=== PATIENT | male | born 1960 | race American Indian/Alaskan Native ===

== ENCOUNTER 2020-05-23 21:34 | Emergency (ER) | payer SELFPAY ==
[2020-05-23 23:46] LABS: Basophils # (Auto) 0.1 K/mm3 (0.0-0.1); Basophils % (Auto) 0.5 % (0.0-1.8); Eosinophils # (Auto) 0.2 K/mm3 (0.0-0.4); Eosinophils % (Auto) 1.5 % (0.0-4.3); Hematocrit 44.8 % (35.5-45.6); Hemoglobin 15.1 gm/dl (11.8-15.2); Lymphocytes # (Auto) 2.8 K/mm3 (1.2-5.4); Lymphocytes % (Auto) 25.8 % (13.4-35.0); Mean Corpuscular HGB Conc 34 % (32-34); Mean Corpuscular Volume 94 fl (84-94); Monocytes # (Auto) 1.1 K/mm3 (0.0-0.8); Monocytes % (Auto) 10.4 % (0.0-7.3); Platelet Count 207 K/mm3 (140-440); Red Blood Count 4.76 M/mm3 (3.65-5.03); Red Cell Distribution Width 14.6 % (13.2-15.2)
[2020-05-23 23:58] LABS: Alanine Aminotransferase 47 units/L (7-56); Albumin 4.7 g/dL (3.9-5); Blood Urea Nitrogen 16 mg/dL (9-20); Calcium 10.2 mg/dL (8.4-10.2); Hemolysis Index 11
[2020-05-24 00:04] LABS: BUN/Creatinine Ratio 23
--- NOTE | 2020-05-24 06:38 | Emergency Department Report ---
ED General Adult HPI - General Chief complaint: Dizziness Stated complaint: DIZZINESS Time Seen by Provider: 05/24/20 06:28 Source: patient Mode of arrival: Ambulatory Limitations: No Limitations - History of Present Illness Initial comments: Patient presents to the emergency department status post a fall yesterday. Patient states he was walking home from the store when he lost his balance and fell. Patient denies any loss of consciousness but is not sure if he hit his head. Patient has a history of strokes and his daughter wanted him to come to get checked out. Patient denies any slurred speech, facial droop, confusion, or "disabilities". Patient also denies chest pain, shortness breath, or headache. -: Sudden Severity scale (0 -10): 0 Consistency: now resolved Improves with: none Worsens with: none Associated Symptoms: denies other symptoms Treatments Prior to Arrival: none - Related Data Allergies Allergy/AdvReac Type Severity Reaction Status Date / Time aspirin Allergy Hives Verified 05/23/20 22:56 ED Review of Systems ROS: Stated complaint: DIZZINESS Other details as noted in HPI Comment: All other systems reviewed and negative Constitutional: denies: chills, fever Eyes: denies: eye pain, eye discharge, vision change ENT: denies: ear pain, throat pain Respiratory: denies: cough, shortness of breath, wheezing Cardiovascular: denies: chest pain, palpitations Endocrine: no symptoms reported Gastrointestinal: denies: abdominal pain, nausea, diarrhea Genitourinary: denies: urgency, dysuria Musculoskeletal: denies: back pain, joint swelling, arthralgia Skin: denies: rash, lesions Neurological: denies: headache, weakness, paresthesias Psychiatric: denies: anxiety, depression Hematological/Lymphatic: denies: easy bleeding, easy bruising ED Past Medical Hx - Past Medical History Previous Medical History?: Yes Hx Hypertension: Yes Hx CVA: Yes - Surgical History Past Surgical History?: No - Social History Smoking Status: Current Every Day Smoker Substance Use Type: None ED Physical Exam - General Limitations: No Limitations General appearance: alert, in no apparent distress - Head Head exam: Present: atraumatic, normocephalic - Eye Eye exam: Present: normal appearance - ENT ENT exam: Present: mucous membranes moist - Neck Neck exam: Present: normal inspection - Respiratory Respiratory exam: Present: normal lung sounds bilaterally. Absent: respiratory distress - Cardiovascular Cardiovascular Exam: Present: regular rate, normal rhythm. Absent: systolic m urmur, diastolic murmur, rubs, gallop - GI/Abdominal GI/Abdominal exam: Present: soft, normal bowel sounds. Absent: distended, tenderness - Rectal Rectal exam: Present: deferred - Extremities Exam Extremities exam: Present: normal inspection - Back Exam Back exam: Present: normal inspection - Neurological Exam Neurological exam: Present: alert, oriented X3, CN II-XII intact. Absent: motor sensory deficit - Psychiatric Psychiatric exam: Present: normal affect, normal mood - Skin Skin exam: Present: warm, dry, intact, normal color. Absent: rash ED Course Vital Signs 05/23/20 05/24/20 05/24/20 22:35 05:48 05:55 Temperature 98.4 F Pulse Rate 95 H 63 Respiratory 17 17 Rate Blood Pressure 163/113 Blood Pressure 173/106 [Left] O2 Sat by Pulse 95 98 Oximetry 05/24/20 05/24/20 05/24/20 06:00 06:45 07:57 Temperature Pulse Rate 72 68 72 Respiratory 18 21 17 Rate Blood Pressure 167/103 Blood Pressure 167/103 164/98 [Left] O2 Sat by Pulse 98 98 98 Oximetry ED Medical Decision Making - Lab Data Result diagrams: 05/23/20 23:10 05/23/20 23:10 Lab Results 05/23/20 05/23/20 Range/Units 23:10 23:10 WBC 11.0 (4.5-11.0) K/mm3 RBC 4.76 (3.65-5.03) M/mm3 Hgb 15.1 (11.8-15.2) gm/dl Hct 44.8 (35.5-45.6) % MCV 94 (84-94) fl MCH 32 (28-32) pg MCHC 34 (32-34) % RDW 14.6 (13.2-15.2) % Plt Count 207 (140-440) K/mm3 Lymph % (Auto) 25.8 (13.4-35.0) % Bowman % (Auto) 10.4 H (0.0-7.3) % Eos % (Auto) 1.5 (0.0-4.3) % Baso % (Auto) 0.5 (0.0-1.8) % Lymph # (Auto) 2.8 (1.2-5.4) K/mm3 Bowman # (Auto) 1.1 H (0.0-0.8) K/mm3 Eos # (Auto) 0.2 (0.0-0.4) K/mm3 Baso # (Auto) 0.1 (0.0-0.1) K/mm3 Seg Neutrophils % 61.8 (40.0-70.0) % Seg Neutrophils # 6.8 (1.8-7.7) K/mm3 Sodium 143 (137-145) mmol/L Potassium 3.2 L (3.6-5.0) mmol/L Chloride 98.7 (98-107) mmol/L Carbon Dioxide 30 (22-30) mmol/L Anion Gap 18 mmol/L BUN 16 (9-20) mg/dL Creatinine 0.7 L (0.8-1.3) mg/dL Estimated GFR > 60 ml/min BUN/Creatinine Ratio 23 % Glucose 93 (75-100) mg/dL Calcium 10.2 (8.4-10.2) mg/dL Total Bilirubin 0.80 (0.1-1.2) mg/dL AST 36 (5-40) units/L ALT 47 (7-56) units/L Alkaline Phosphatase 103 (35-129) units/L Total Protein 8.0 (6.3-8.2) g/dL Albumin 4.7 (3.9-5) g/dL Albumin/Globulin Ratio 1.4 % - EKG Data -: EKG Interpreted by Me EKG shows normal: sinus rhythm Rate: normal Critical care attestation.: If time is entered above; I have spent that time in minutes in the direct care of this critically ill patient, excluding procedure time. ED Disposition Clinical Impression: Fall Disposition: DC-01 TO HOME OR SELFCARE Is pt being admited?: No Does the pt Need Aspirin: No Condition: Stable Instructions: Fall Prevention (ED) Additional Instructions: return if worse Referrals: YANDEL SNOW MD [Primary Care Provider] - 3-5 Days [facility] [Provider Group] - 3-5 Days [facility] [Provider Group] - 3-5 Days Time of Disposition: 08:21
--- NOTE | 2020-05-24 07:53 | Cat Scan Report ---
CT HEAD WITHOUT CONTRAST INDICATION / CLINICAL INFORMATION: fall/dizziness. TECHNIQUE: Axial imaging performed from the skull apex through the skull base without the use of cont rast. Sagittal and coronal reformatted images. All CT scans at this location are performed using CT dose reduction for ALARA by means of automated exposure control. COMPARISON: None available. FINDINGS: CEREBRAL PARENCHYMA: Mild to moderate hypoattenuation throughout the white matter is identified consi stent with chronic microangiopathy. There are multiple chronic appearing millimetric lacunar infarcts identified including the left frontal white matter, right basal ganglia, left basal ganglia and denise . No large chronic infarct. HEMORRHAGE: None. EXTRA-AXIAL SPACES: Normal in size and morphology for the patient's age. VENTRICULAR SYSTEM: Normal in size and morphology for the patient's age. MIDLINE SHIFT OR HERNIATION: None. CEREBELLUM / BRAINSTEM: Chronic lacunar infarcts in the bilateral denise. CALVARIUM: No significant abnormality. ORBITS: Normal as visualized. PARANASAL SINUSES / MASTOID AIR CELLS: Normal as visualized. SOFT TISSUES of HEAD: No significant abnormality. ADDITIONAL FINDINGS: None. IMPRESSION: No acute intracranial abnormality. Volume loss. Chronic white matter changes. Multiple bilateral wood stock blank handler stacie lacunar infarcts as noted above. Signer Name: Ravi Clifton Jr, MD Signed: 05/24/2020 7:48 AM Workstation Name: [id number]
[2020-05-24 08:45] VITALS: BP 159/90
== END 2020-05-24 08:45 | disposition home or self-care (01) ==
LOC: ED 21:34
DX: R42 Dizziness and giddiness (principal); I10 Essential (primary) hypertension; F17.200 Nicotine dependence, unspecified, uncomplicated; Z88.6 Allergy status to analgesic agent; Z86.73 Personal history of transient ischemic attack (TIA), and cerebral infarction without residual deficits; W18.30XA Fall on same level, unspecified, initial encounter; Y93.89 Activity, other specified; Y92.89 Other specified places as the place of occurrence of the external cause; Y99.8 Other external cause status
CPT/HCPCS: 36415; 70450; 80053; 85025; 93005

== ENCOUNTER 2021-02-22 09:00 | Emergency (ER) | payer SELFPAY ==
--- NOTE | 2021-02-22 09:49 | Emergency Department Report ---
ED General Adult HPI - General Chief complaint: Weakness Stated complaint: AMS PUI?: No Time Seen by Provider: 02/22/21 09:37 Source: patient, family, EMS ( EMS documentation not available at time of chart dictation ), RN notes reviewed Mode of arrival: Stretcher Limitations: Altered Mental Status, Physical Limitation - History of Present Illness Initial comments: History obtained by speaking to patient, and primarily by speaking to his daughter, Ms. Jordan Chavez; [phone] [facility]. Past medical history: "Prostate", hypertension, and "stroke" The patient is a 60-year-old gentleman. He is not known to myself previously. He is brought to the hospital by emergency medical services. The patient himself denies complaints. The patient follows commands. The patient is mini arlene verbal. History primarily obtained by speaking to his daughter. As per his daughter, 911 is activated because the patient is "not doing what he supposed to." This patient is minimally verbal, and typically is wearing diapers. The patient has not been changing his diapers, and has been "lying around in bed." He is also not eating, sleeping every 2 hours, and not acting like his baseline. The patient's daughter feels like last time she saw the patient in any semblance of normal for him was this past Sunday. However, she reports a gradual decline in functional status over the past few weeks to months, such that his outpatient primary care doctor has referred him for a "neurological evaluation", but secondary to lack of insurance, the patient's not been able to follow-up. She does not believe the patient has received his COVID-19 vaccination. She reports that the patient has been laying in bed, and "not getting up." The patient is not really feeding himself, he is not changing his diapers, he was previously able to dress himself, and he does walk with a walker. The patient does not have a home health aide. The patient's daughter reports that the symptoms appear to be constant, worsening, and do not have exacerbating or relieving factors that she is aware of. She is worried about him lying around, "because of bedsores." -: week(s), month(s) Quality: other Consistency: other Improves with: other Worsens with: other - Related Data Allergies Allergy/AdvReac Type Severity Reaction Status Date / Time aspirin Allergy Hives Verified 05/23/20 22:56 ED Review of Systems ROS: Stated complaint: AMS Other details as noted in HPI Comment: Unobtainable due to pts medical conditions (Review of systems as per daughter) Constitutional: malaise, weakness. denies: fever Respiratory: denies: cough Cardiovascular: denies: syncope Gastrointestinal: denies: nausea, vomiting, diarrhea Genitourinary: denies: frequency Neurological: weakness, confusion ED Past Medical Hx - Past Medical History Hx Hypertension: Yes Hx CVA: Yes - Social History Smoking Status: Current Every Day Smoker Substance Use Type: None ED Physical Exam - General Limitations: Altered Mental Status General appearance: anxious - Head Head exam: Present: atraumatic, normocephalic - Eye Eye exam: Present: EOMI, other (Crusting noted on the right periorbital region) - ENT ENT exam: Present: mucous membranes dry, normal external ear exam - Neck Neck exam: Present: normal inspection, full ROM. Absent: tenderness, meningismus - Respiratory Respiratory exam: Present: decreased breath sounds. Absent: respiratory distress, wheezes, rales, rhonchi, stridor - Cardiovascular Cardiovascular Exam: Present: regular rate, normal rhythm, normal heart sounds. Absent: bradycardia, tachycardia, irregular rhythm, systolic murmur, diastolic murmur, rubs, gallop - GI/Abdominal GI/Abdominal exam: Present: soft. Absent: distended, tenderness, guarding, rebound, rigid, pulsatile mass - Rectal Rectal exam: Absent: normal inspection (Skin breakdown is noted.) - exam: Present: other (There is inguinal erythema and induration. The testicles are nontender. There is a normal cremasteric reflex bilaterally. Chaperoned by nurse Anant Richardson) - Extremities Exam Extremities exam: Present: other (2+ pulses noted in the bilateral upper and lower extremities. There is no palpable cord. negative Homans sign. Muscular compartments are soft. The pelvis is stable.). Absent: normal inspection (Dried feculent matter noted in the groin, testicles, and distal feet. Venous stasis changes noted in the bilateral lower extremities), tenderness, calf tenderness - Back Exam Back exam: Present: normal inspection. Absent: tenderness, CVA tenderness (R), CVA tenderness (L), paraspinal tenderness, vertebral tenderness - Neurological Exam Neurological exam: Present: altered, other (There is no obvious facial droop. Sensation is intact to light touch and pinch in 4 extremities. EOMI. Moves 4 extremities to command.) - Psychiatric Psychiatric exam: Present: other (The patient is minimally verbal.) - Skin Skin exam: Present: warm, other (There is induration noted in the bilateral inguinal creases. There is gluteal induration noted. Skin breakdown is noted.) ED Course Vital Signs 02/22/21 02/22/21 02/22/21 09:19 09:34 09:39 Temperature 97.4 F L Pulse Rate 98 H 102 H Respiratory 16 22 Rate Blood Pressure 147/86 Blood Pressure 126/85 [Right] O2 Sat by Pulse 98 96 95 Oximetry 02/22/21 02/22/21 02/22/21 09:45 10:01 10:10 Temperature 97.4 F L Pulse Rate 105 H 93 H 93 H Respiratory 26 H 18 18 Rate Blood Pressure 121/81 Blood Pressure 126/85 [Right] O2 Sat by Pulse 97 93 93 Oximetry 02/22/21 02/22/21 02/22/21 10:15 11:16 11:31 Temperature Pulse Rate 92 H 97 H Respiratory 18 19 Rate Blood Pressure 118/78 118/78 118/78 Blood Pressure [Right] O2 Sat by Pulse 93 81 L 99 Oximetry 02/22/21 02/22/21 11:45 12:01 Temperature Pulse Rate 97 H 131 H Respiratory 21 19 Rate Blood Pressure 132/79 175/146 Blood Pressure [Right] O2 Sat by Pulse 100 86 Oximetry - Reevaluation(s) Reevaluation #1: 02/22/21 10:14 Differential diagnosis, including but not limited to: Pneumonia, urinary tract infection, subacute stroke, dehydration, pressure sores, debility, electrolyte derangement, dementia Assessment and plan: 60-year-old gentleman, presenting approximately 48 hours after last known well time, with a complaint of decline in functional status, change in mental status. Place patient on personnel monitor. Obtain x-ray the chest, urinalysis, EKG, have requested that nursing team reconcile home medications, ABG on room air, swallow screen, noncontrast CT scan of the brain, and appropriate laboratory studies. Reassess after initial data points. Likely admit to the medical service once initial diagnostics have resulted. I have discussed this with the patient's daughter, who is amenable to this plan of care. Gluteal induration should improve with turning and proper wound care. Inguinal induration should improve with appropriate wound care and hygiene. His examination does not appear to be consistent with cellulitis in the aforementioned areas. 02/22/21 13:28 CT scan chest pending interpretation at this time. ABG shows hypoxic respiratory failure. He is also found to have transaminitis, evidence of rhabdomyolysis, dehydration. CT scan of the brain negative for acute findings. Supplemental oxygen ordered. Fluids and antibiotics ordered for urinary tract infection and systemic inflammatory response syndrome. Hospital physician, Dr. Rae, to admit patient to the medical service. Transaminitis likely secondary to rhabdomyolysis, likely secondary to poor mobil ity and patient laying flat for prolonged period of time. Given hypoxia, tachycardia, low-grade rectal temperature 100.2 degrees, CT angiogram of the chest will be obtained to exclude pneumonia as well as pulmonary embolism. Given that patient is a poor historian, D-dimer not adequate at this time, as we cannot assess a pre-/post test probability D-dimer values. 02/22/21 15:01 ct chest: IMPRESSION: 1. No CT evidence for pulmonary embolism. 2. Peribronchovascular reticulonodular disease within the anterior upper lobes bilaterally is likely due to lower airways disease of infectious etiology. ED Medical Decision Making - Lab Data Result diagrams: 02/22/21 11:27 02/22/21 11:27 Vital Signs 02/22/21 02/22/21 02/22/21 09:19 09:39 09:45 Temperature 97.4 F L Pulse Rate 98 H 105 H Respiratory 16 26 H Rate Blood Pressure Blood Pressure 126/85 [Right] O2 Sat by Pulse 98 95 97 Oximetry 02/22/21 02/22/21 10:01 10:10 Temperature 97.4 F L Pulse Rate 93 H 93 H Respiratory 18 18 Rate Blood Pressure 121/81 Blood Pressure 126/85 [Right] O2 Sat by Pulse 93 93 Oximetry - EKG Data -: EKG Interpreted by Ut EKG shows normal: sinus rhythm Rate: normal - EKG Data When compared to previous EKG there are: previous EKG unavailable 02/22/21 13:45 EKG interpreted at 13: 35 Sinus rhythm, 95 bpm. Normal axis, normal intervals, motion artifact, QTC 4 9 ms. This is not a STEMI. There is no stemi - Radiology Data Radiology results: report reviewed, image reviewed [address] [address] XRay Report Signed Patient: EDY CHAVEZ MR#: [id number] 9 : 1960 Acct:[id number] Age/Sex: 60 / M ADM Date: 02/22/21 Loc: ED Attending Dr: Ordering Physician: MAMI BOOTH MD Date of Service: 02/22/21 Procedure(s): XR chest 1V ap Accession Number(s): [id number] cc: MAMI BOOTH MD Fluoro Time In Minutes: CHEST 1 VIEW 02/22/2021 9:43 AM INDICATION / CLINICAL INFORMATION: Altered Mental Status. COMPARISON: None available. FINDINGS: SUPPORT DEVICES: None. HEART / MEDIASTINUM: No significant abnormality. LUNGS / PLEURA: There is linear density along the expected location of the minor fissure on the right this may represent a small amount of fluid in the minor fissure or pleural thickening along the minor fissure. No pneumothorax. ADDITIONAL FI NDINGS: No significant additional findings. IMPRESSION: 1. There is pleural thickening or pleural fluid along the minor fissure on the right. No focal infiltrate is seen. Signer Name: Jevno Aguayo MD Signed: 02/22/2021 10:14 AM Workstation Name: [id number] Transcribed By: SS Dictated By: Jevon Aguayo MD Electronically Authenticated By: Jevon Aguayo MD Signed Date/Time: 02/22/21 1014 DD/ [address] [address] Cat Scan Report Signed Patient: EDY CHAVEZ MR#: [id number] 9 : 1960 Acct:[id number] Age/Sex: 60 / M ADM Date: 02/22/21 Loc: ED Attending Dr: Ordering Physician: MAMI BOOTH MD Date of Service: 02/22/21 Procedure(s): CT angio chest Accession Number(s): [id number] cc: MAMI BOOTH MD CTA CHEST WITH IV CONTRAST INDICATION: Acute hypoxemic respiratory failure OMNI 350 100 ML. TECHNIQUE: Axial CT images were obtained through the chest after injection o f IV contrast. 3 plane MIP reconstructions were produced. All CT scans at this location are performed using CT dose reduction for ALARA by means of automated exposure control. COMPARISON: None available. FINDINGS: Pulmonary Arteries: No pulmonary emboli. Thoracic Aorta: No acute abnormality. Heart: Normal. Lungs: There is an 8 mm solid nodule in the right middle lobe (axial image 65). Peribronchronchovascular reticulonodular disease is seen within the anterior inferior right upper lobe and within the anterior left upper lobe. There is scarring along the minor fissure. Pleura: No pleural effusion. No pneumothorax. Lymph Nodes: No significant adenopathy. Additional Findings: None. Upper Abdome n: No acute findings. There is a punctate nonobstructing calyceal stone in the left kidney. Skeletal Structures: No significant osseous abnormality. IMPRESSION: 1. No CT evidence for pulmonary embolism. 2. Peribronchovascular reticulonodular disease within the anterior upper lobes bilaterally is likely due to lower airways disease of infectious etiology. 3. Single incidental pulmonary nodule(s) in the right middle lobe measuring 8 mm with solid characteristics. - Recommendation according to Fleischner Society 2017 Guidelines: Low Risk Patient: CT at 6-12 months, then consider CT at 18-24 months; High Risk Patient: CT at 6-12 months, then CT at 18-24 months 4. Additional incidental findings as above. Signer Name: Aristeo Adler MD Signed: 02/22/2021 1:29 PM Workstation Name: [id number] Transcribed By: Dictated By: Aristeo Adler MD Electronically Authenticated By: Aristeo Adler MD Signed Date/Time: 02/22/21 1329 DD/ 1323 [facility] [address] [place] [address] Cat Scan Report Signed Patient: EDY CHAVEZ MR#: [id number] 9 : 1960 Acct:[id number] Age/Sex: 60 / M ADM Date: 02/22/21 Loc: ED Attending Dr: Ordering Physician: MAMI BOOTH MD Date of Service: 02/22/21 Procedure(s): CT head/brain wo con Accession Number(s): [id number] cc: MAMI BOOTH MD CT HEAD WITHOUT CONTRAST INDICATION / CLINICAL INFORMATION: Altered Mental Status. TECHNIQUE: Axial imaging performed from the skull apex through the skull base without the use of contrast. Sagittal and coronal reformatted images. All CT scans at this location are performed using CT dose reduction for ALARA by means of automated exposure control. COMPARISON: 05/24/2020 FINDINGS: CEREBRAL PARENCHYMA: Moderate hypoattenuation throughout the white matter is again seen consistent with chronic microangiopathy. Multiple chronic lacunar infarcts are identified in the bilateral basal ganglia and bilateral denise which appear unchanged. No acute parenchymal abnormality is detected. HEMORRHAGE: None. EXTRA-AXIAL SPACES: Normal in size and morphology for the patient's age. VENTRICULAR SYSTEM: Normal in size and morphology for the patient's age. MIDLINE SHIFT OR HERNIATION: None. CEREBELLUM / BRAINSTEM: No significant abnormality. CALVARIUM: No significant abnormality. ORBITS: Normal as visualized. PARANASAL SINUSES / MASTOID AIR CELLS: Normal as visualized. SOFT TISSUES of HEAD: No significant abnormality. ADDITIONAL FINDINGS: None. IMPRESSION: No acute intracranial abnormality. Chronic white matter changes and multiple bilateral chronic lacunar infarcts as described which appear stable since 05/24/2020 exam. Signer Name: Ravi Clifton Jr, MD Signed: 02/22/2021 10:53 AM Workstation Name: [id number] Transcribed By: TTR Dictated By: RAVI CLIFTON JR, MD Electronically Authenticated By: RAVI CLIFTON JR, MD Signed Date/Time: 02/22/21 1053 DD/ 1051 Critical Care Time: Yes Critical care time in (mins) excluding proc time.: 35 Critical care attestation.: If time is entered above; I have spent that time in minutes in the direct care of this critically ill patient, excluding procedure time. ED Disposition Clinical Impression: Debility, Acute encephalopathy, Acute hypoxemic respiratory failure, SIRS ( systemic inflammatory response syndrome), Dehydration, Hypokalemia, Rhabdomyolysis, UTI (urinary tract infection) Disposition: OP ADMIT IP TO THIS HOSP Is pt being admited?: Yes Does the pt Need Aspirin: No Condition: Serious Referrals: PRIMARY CARE, [Primary Care Provider] - 3-5 Days
--- NOTE | 2021-02-22 10:18 | XRay Report ---
CHEST 1 VIEW 02/22/2021 9:43 AM INDICATION / CLINICAL INFORMATION: Altered Mental Status. COMPARISON: None available. FINDINGS: SUPPORT DEVICES: None. HEART / MEDIASTINUM: No significant abnormality. LUNGS / PLEURA: There is linear density along the expected location of the minor fissure on the right this may represent a small amount of fluid in the minor fissure or pleural thickening along the mario r fissure. No pneumothorax. ADDITIONAL FINDINGS: No significant additional findings. IMPRESSION: 1. There is pleural thickening or pleural fluid along the minor fissure on the right. No focal infilt rate is seen. Signer Name: Jevon Aguayo MD Signed: 02/22/2021 10:14 AM Workstation Name: [id number]
[2021-02-22 10:54] LABS: ABG Base Excess 1.3 mmol/L (-2.0-3.0); ABG HCO3 24.9 mmol/L (20.0-26.0); ABG Methemoglobin 0.4 % (0.0-1.5); ABG Oxygen Saturation 94.3 % (95.0-99.0); ABG PH 7.458 pH Units (7.350-7.450); ABG PO2 65.1 mm Hg (80.0-90.0)
--- NOTE | 2021-02-22 10:57 | Cat Scan Report ---
CT HEAD WITHOUT CONTRAST INDICATION / CLINICAL INFORMATION: Altered Mental Status. TECHNIQUE: Axial imaging performed from the skull apex through the skull base without the use of cont rast. Sagittal and coronal reformatted images. All CT scans at this location are performed using CT dose reduction for ALARA by means of automated exposure control. COMPARISON: 05/24/2020 FINDINGS: CEREBRAL PARENCHYMA: Moderate hypoattenuation throughout the white matter is again seen consistent wi th chronic microangiopathy. Multiple chronic lacunar infarcts are identified in the bilateral basal g anglia and bilateral denise which appear unchanged. No acute parenchymal abnormality is detected. HEMORRHAGE: None. EXTRA-AXIAL SPACES: Normal in size and morphology for the patient's age. VENTRICULAR SYSTEM: Normal in size and morphology for the patient's age. MIDLINE SHIFT OR HERNIATION: None. CEREBELLUM / BRAINSTEM: No significant abnormality. CALVARIUM: No significant abnormality. ORBITS: Normal as visualized. PARANASAL SINUSES / MASTOID AIR CELLS: Normal as visualized. SOFT TISSUES of HEAD: No significant abnormality. ADDITIONAL FINDINGS: None. IMPRESSION: No acute intracranial abnormality. Chronic white matter changes and multiple bilateral chronic lacuna r infarcts as described which appear stable since 05/24/2020 exam. Signer Name: Ravi Clifton Jr, MD Signed: 02/22/2021 10:53 AM Workstation Name: [id number]
[2021-02-22] MEDS ORDERED: SODIUM CHLORIDE 0.9% 500 ML 500 ML IV ONE (11:00)
[2021-02-22 12:12] LABS: Basophils # (Auto) 0.1 K/mm3 (0.0-0.1); Basophils % (Auto) 0.8 % (0.0-1.8); Hematocrit 40.1 % (35.5-45.6); Hemoglobin 13.6 gm/dl (11.8-15.2); Lymphocytes # (Auto) 1.8 K/mm3 (1.2-5.4); Lymphocytes % (Auto) 16.4 % (13.4-35.0); Mean Corpuscular HGB Conc 34 % (32-34); Mean Corpuscular Volume 93 fl (84-94); Monocytes # (Auto) 1.3 K/mm3 (0.0-0.8); Monocytes % (Auto) 12.1 % (0.0-7.3); Platelet Count 271 K/mm3 (140-440); Red Blood Count 4.29 M/mm3 (3.65-5.03); Red Cell Distribution Width 14.4 % (13.2-15.2)
[2021-02-22 12:15] LABS: Alanine Aminotransferase 86 units/L (7-56); Albumin 4.3 g/dL (3.9-5); Bilirubin,Direct 0.4 mg/dL (0-0.2); Blood Urea Nitrogen 36 mg/dL (9-20); Calcium 9.9 mg/dL (8.4-10.2); Hemolysis Index 3
[2021-02-22 12:20] LABS: BUN/Creatinine Ratio 51
[2021-02-22 12:22] LABS: INR 1.06 (0.87-1.13)
[2021-02-22 12:23] LABS: Partial Thromboplastin Time 26.4 Sec. (24.2-36.6)
[2021-02-22] MEDS ORDERED: cefTRIAXone/NS 1 GM/50 ML 1 GM/50 ML BAG IV ONE (12:29)
[2021-02-22] MEDS ORDERED: SODIUM CHLORIDE 0.9% IV ONE (12:34)
[2021-02-22] MEDS ORDERED: POTASSIUM CHLORIDE ER 20 MEQ TAB PO ONE (12:34)
[2021-02-22 13:18] LABS: Amphetamine Screen,Urine Negative; Bacteria,Urine 1+ /HPF (Negative); Benzodiazepines Screen,Urine Negative; Bilirubin,Urine NEG (Negative); Blood,Urine MOD (Negative); Cannabinoid Screen,Urine Negative; Cocaine Screen,Urine Negative; Color,Urine Amber (Yellow); Hyaline Casts,Urine 18 /LPF; Methadone Screen,Urine Negative; Mucus,Urine 3+ /HPF; Opiate Screen,Urine Negative
--- NOTE | 2021-02-22 13:34 | Cat Scan Report ---
CTA CHEST WITH IV CONTRAST INDICATION: Acute hypoxemic respiratory failure OMNI 350 100 ML. TECHNIQUE: Axial CT images were obtained through the chest after injection of IV contrast. 3 plane MIP reconstru ctions were produced. All CT scans at this location are performed using CT dose reduction for ALARA b y means of automated exposure control. COMPARISON: None available. FINDINGS: Pulmonary Arteries: No pulmonary emboli. Thoracic Aorta: No acute abnormality. Heart: Normal. Lungs: There is an 8 mm solid nodule in the right middle lobe (axial image 65). Peribronchronchovascu lar reticulonodular disease is seen within the anterior inferior right upper lobe and within the ante rior left upper lobe. There is scarring along the minor fissure. Pleura: No pleural effusion. No pneumothorax. Lymph Nodes: No significant adenopathy. Additional Findings: None. Upper Abdomen: No acute findings. There is a punctate nonobstructing calyceal stone in the left kidne y. Skeletal Structures: No significant osseous abnormality. IMPRESSION: 1. No CT evidence for pulmonary embolism. 2. Peribronchovascular reticulonodular disease within the anterior upper lobes bilaterally is likely due to lower airways disease of infectious etiology. 3. Single incidental pulmonary nodule(s) in the right middle lobe measuring 8 mm with solid character istics. - Recommendation according to Fleischner Society 2017 Guidelines: Low Risk Patient: CT at 6-12 months , then consider CT at 18-24 months; High Risk Patient: CT at 6-12 months, then CT at 18-24 months 4. Additional incidental findings as above. Signer Name: Aristeo Adler MD Signed: 02/22/2021 1:29 PM Workstation Name: [id number]
[2021-02-22] MEDS ORDERED: SODIUM CHLORIDE 0.9% 500 ML 500 ML ONE ×2 (13:51)
[2021-02-22] MEDS: POTASSIUM CHLORIDE 10 MEQ 10 MEQ/100 ML BAG IV SCH ×3 (14:06→18:05)
[2021-02-22] MEDS ORDERED: AZITHROMYCIN/NS 500 MG/250 ML 500 MG/250 ML BAG IV ONE (14:39)
--- NOTE | 2021-02-22 15:40 | History and Physical Report ---
History of Present Illness Chief complaint: He is getting worse, he cannot do anything for himself History of present illness: 60 YO Male with Vascular Dementia, Cerebral Atherosclerosis, CVA complicated by Debility and Dysarthria, HTN presents to ED for evaluation. Patient has diminished cognition and is unable to provide history. Patient history is provided by his daughter who is made available by telephone. As per daughter the patient has experienced progressive weakness, diminished oral intake, confusion, and worsening memory loss. The patient is currently bedbound and nonambulatory and has a palliative performance score 30%. Patient requires 6/6 assistance with activities of daily living. Patient is unable to make needs known or follow simple commands. EMS was notified and upon arrival the patient was found to be in distress and subsequently transported to [facility] for further care and evaluation of the aforementioned symptoms. The patient was seen and evaluated in the emergency department. All lab and imaging studies reviewed. Patient found to have encephalopathy, volume depletion, urinary tract infection, as well as rhabdomyolysis. Patient treated with IV fluid resuscitation therapy, IV antibiotic therapy, as well as supportive care. Advanced care planning conducted in ED. Patient daughter Ms. Jordan Chavez was notified and informed of patient status. Patient daughter elects to have patient discharged home with hospice care. Hospice care team notified. Past History Past Medical History: hypertension, stroke, other (See HPI, vascular dementia, cerebral atherosclerosis) Past Surgical History: No surgical history, Other (Reviewed) Social history: single, lives with family, smoking Family history: hypertension, stroke Medications and Allergies Allergies Allergy/AdvReac Type Severity Reaction Status Date / Time aspirin Allergy Hives Verified 05/23/20 22:56 Active Meds: Active Medications Potassium Chloride (Kcl 10meq/100ml) 10 meq in 100 mls @ 100 mls/hr IV Q1H TASHA Stop: 02/22/21 16:59 Last Admin: 02/22/21 14:06 Dose: 100 mls/hr Documented by: Review of Systems ROS unobtainable: due to mental status Exam - Constitutional Vitals: Temp Pulse Resp BP Pulse Ox 97.4 F L 131 H 19 175/146 86 02/22/21 10:10 02/22/21 12:01 02/22/21 12:01 02/22/21 12:01 02/22/21 12:01 General appearance: Present: mild distress, disheveled - EENT Eyes: Present: PERRL ENT: hearing intact, clear oral mucosa, hearing decreased - Neck Neck: Present: supple, normal ROM - Respiratory Respiratory effort: normal Respiratory: bilateral: CTA - Cardiovascular Heart Sounds: Present: S1 & S2. Absent: rub, click - Extremities Extremities: pulses symmetrical, No edema Peripheral Pulses: within normal limits - Abdominal General gastrointestinal: Present: soft, non-tender, non-distended, normal bowel sounds Male genitourinary: Present: normal - Integumentary Integumentary: Present: clear, dry, clammy - Musculoskeletal Musculoskeletal: generalized weakness - Psychiatric Psychiatric: no appropriate mood/affect, no intact judgment & insight, no memory intact - Neurologic Neurologic: CNII-XII intact, no focal deficits, moves all extremities, no gait normal HEART Score - HEART Score Troponin: Troponin T 0.020 ng/mL (0.00-0.029) 02/22/21 11:27 Results - Labs CBC & Chem 7: 02/22/21 11:27 02/22/21 11:27 Labs: Abnormal lab results 02/22/21 02/22/21 02/22/21 Range/Units 10:10 11:27 11:27 [place] % (Auto) 12.1 H (0.0-7.3) % [place] # (Auto) 1.3 H (0.0-0.8) K/mm3 Seg Neutrophils % 70.7 H (40.0-70.0) % ABG pH 7.458 H (7.350-7.450) pH Units ABG pO2 65.1 L (80.0-90.0) mm Hg ABG O2 Saturation 94.3 L (95.0-99.0) % ABG Hemoglobin 13.4 L (14.0-18.0) gm/dl Oxyhemoglobin 92.5 L (95.0-99.0) % Potassium (3.6-5.0) mmol/L BUN (9-20) mg/dL Creatinine (0.8-1.3) mg/dL Glucose (75-100) mg/dL Lactic Acid (0.7-2.0) mmol/L Direct Bilirubin (0-0.2) mg/dL AST (5-40) units/L ALT (7-56) units/L Ammonia 19.0 L (25-60) umol/L Total Creatine Kinase (55-170) units/L Urine WBC (Auto) (0.0-6.0) /HPF Salicylates (2.8-20.0) mg/dL Acetaminophen (10.0-30.0) ug/mL 02/22/21 02/22/21 02/22/21 Range/Units 11:27 11:27 11:27 [place] % (Auto) (0.0-7.3) % [place] # (Auto) (0.0-0.8) K/mm3 Seg Neutrophils % (40.0-70.0) % ABG pH (7.350-7.450) pH Units ABG pO2 (80.0-90.0) mm Hg ABG O2 Saturation (95.0-99.0) % ABG Hemoglobin (14.0-18.0) gm/dl Oxyhemoglobin (95.0-99.0) % Potassium 3.0 L (3.6-5.0) mmol/L BUN 36 H (9-20) mg/dL Creatinine 0.7 L (0.8-1.3) mg/dL Glucose 106 H (75-100) mg/dL Lactic Acid 2.30 H* (0.7-2.0) mmol/L Direct Bilirubin 0.4 H (0-0.2) mg/dL AST 107 H (5-40) units/L ALT 86 H (7-56) units/L Ammonia (25-60) umol/L Total Creatine Kinase 2934 H (55-170) units/L Urine WBC (Auto) (0.0-6.0) /HPF Salicylates < 0.3 L (2.8-20.0) mg/dL Acetaminophen (10.0-30.0) ug/mL 02/22/21 02/22/21 02/22/21 Range/Units 11:27 13:10 15:02 [place] % (Auto) (0.0-7.3) % [place] # (Auto) (0.0-0.8) K/mm3 Seg Neutrophils % (40.0-70.0) % ABG pH (7.350-7.450) pH Units ABG pO2 (80.0-90.0) mm Hg ABG O2 Saturation (95.0-99.0) % ABG Hemoglobin (14.0-18.0) gm/dl Oxyhemoglobin (95.0-99.0) % Potassium (3.6-5.0) mmol/L BUN (9-20) mg/dL Creatinine (0.8-1.3) mg/dL Glucose (75-100) mg/dL Lactic Acid 2.60 H* 3.20 H* (0.7-2.0) mmol/L Direct Bilirubin (0-0.2) mg/dL AST (5-40) units/L ALT (7-56) units/L Ammonia (25-60) umol/L Total Creatine Kinase (55-170) units/L Urine WBC (Auto) (0.0-6.0) /HPF Salicylates (2.8-20.0) mg/dL Acetaminophen 5.0 L (10.0-30.0) ug/mL 02/22/21 Range/Units Unknown [place] % (Auto) (0.0-7.3) % [place] # (Auto) (0.0-0.8) K/mm3 Seg Neutrophils % (40.0-70.0) % ABG pH (7.350-7.450) pH Units ABG pO2 (80.0-90.0) mm Hg ABG O2 Saturation (95.0-99.0) % ABG Hemoglobin (14.0-18.0) gm/dl Oxyhemoglobin (95.0-99.0) % Potassium (3.6-5.0) mmol/L BUN (9-20) mg/dL Creatinine (0.8-1.3) mg/dL Glucose (75-100) mg/dL Lactic Acid (0.7-2.0) mmol/L Direct Bilirubin (0-0.2) mg/dL AST (5-40) units/L ALT (7-56) units/L Ammonia (25-60) umol/L Total Creatine Kinase (55-170) units/L Urine WBC (Auto) 10.0 H (0.0-6.0) /HPF Salicylates (2.8-20.0) mg/dL Acetaminophen (10.0-30.0) ug/mL Assessment and Plan - Patient Problems (1) Metabolic encephalopathy Current Visit: Yes Status: Acute Plan to address problem: CT scan head, neuro check, seizure cautions, aspiration precautions, fall precautions, supportive care. (2) Vascular dementia Current Visit: Yes Status: Acute Qualifiers: Dementia behavioral disturbance: without behavioral disturbance Qualified Code(s): F01.50 - Vascular dementia without behavioral disturbance Plan to address problem: Verbal prompting, verbal redirection, benzodiazepine therapy as clinically indicated. (3) Cerebral atherosclerosis Current Visit: Yes Status: Acute Plan to address problem: Risk factor reduction therapy as clinically indicated, supportive care. (4) Debility Current Visit: Yes Status: Acute Plan to address problem: Supportive care, fall precautions. (5) DVT prophylaxis Current Visit: Yes Status: Acute Plan to address problem: SCD to bilateral lower extremities while in bed, (6) Advance care planning Current Visit: Yes Status: Acute Plan to address problem: Disease education conducted, care plan discussed, diagnoses discussed, prognosis discussed, patient daughter acknowledges understanding and agreement with care plan. Patient daughter elects for patient to be discharged home with hospice care. Hospice care provider notified and patient is pending admission to hospice care. +30 minutes.
[2021-02-22 21:27] VITALS: BP 117/85
--- NOTE | 2021-02-23 17:58 | Electrocardiograph Report ---
[facility] Test Date: 2021-02-22 Test Time: 13:35:11 Pat Name: EDY LLANES Department: Room: Gender: M Infection Control Nurse: TANG : 1960 Requested By: MAMI BOOTH Order Number: [id number] Reading MD: Joan Hernandez Measurements Intervals [place] Rate: 95 P: 73 NH: 136 QRS: 46 QRSD: 83 T: -74 QT: 326 QTc: 409 Interpretive Statements Sinus rhythm Nonspecific T abnormalities, lateral leads Compared to ECG 02/22/2021 13:30:02 Electronically Signed On 02-23-2021 17:58:38 EDT by Joan Hernandez
== END 2021-02-22 21:26 | disposition admitted as inpatient to this hospital (09) ==
LOC: ED 09:00
DX: J96.91 Respiratory failure, unspecified with hypoxia (principal); G93.40 Encephalopathy, unspecified; E86.0 Dehydration; R53.81 Other malaise; E87.6 Hypokalemia; M62.82 Rhabdomyolysis; N39.0 Urinary tract infection, site not specified; R79.1 Abnormal coagulation profile; I10 Essential (primary) hypertension; F17.200 Nicotine dependence, unspecified, uncomplicated; Z72.89 Other problems related to lifestyle; Z79.899 Other long term (current) drug therapy
CPT/HCPCS: 36415; 70450; 71045; 71275; 80053; 80076; 80307; 81001; 82140; 82550; 82803; 83735; 84443; 84484; 85025; 85610; 85730; 86850; 86900; 86901; 87040; 87086; 93005; 96361; 96365; 96366; 96368; 99291; J0456; J0696; J3480; J7030; J7040; Q9967; 80320; G0480